=== PATIENT | female | born 1955 | race Two or more races ===

== ENCOUNTER 2020-12-09 16:06 | Outpatient (CLI) | payer OTHER | END 2020-12-09 16:15 | disposition home or self-care (01) | LOC: LAB 16:06 | PROVIDERS: ATTEND Specialist | DX: E11.65 Type 2 diabetes mellitus with hyperglycemia (principal); E11.21 Type 2 diabetes mellitus with diabetic nephropathy ==

== ENCOUNTER 2025-01-21 07:04 | Outpatient (CLI) | payer OTHER | END 2025-01-22 08:38 | disposition home or self-care (01) | LOC: NUCLEAR 07:04 | PROVIDERS: ATTEND Internal Medicine | DX: I20.9 Angina pectoris, unspecified (principal) | CPT/HCPCS: 78452; 93017; A9500; J0153 ==